=== PATIENT | male | born 1970 | race Two or more races ===

== ENCOUNTER 2022-09-07 00:57 | Inpatient (IN) | payer OTHER, MEDICAID ==
[~2022-09-07] VITALS: Ht 182.9 cm; Wt 84.1 kg
[2022-09-07 03:11] LABS: BASOPHILS % (AUTO) 0.3 % (0-1); EOSINOPHILS % (AUTO) 0.2 % (0-6); HEMATOCRIT 36.4 % (42.0-52.0); HEMOGLOBIN 11.5 g/dl (14.0-17.9); LYMPHOCYTES # (AUTO) 0.6 X10'3 (1.1-4.8); LYMPHOCYTES % (AUTO) 4.4 % (21-51); MEAN CORPUSCULAR HEMOGLOBIN 22.6 PG (27.0-31.0); MEAN CORPUSCULAR HGB CONC 31.7 g/dL (33.0-36.5); MEAN CORPUSCULAR VOLUME 71.2 FL (78-98); MONOCYTES # (AUTO) 0.9 X10'3 (0-0.9); MONOCYTES % (AUTO) 6.4 % (2-12); NEUTROPHILS % (AUTO) 88.7 % (42-75); PLATELET COUNT 480 X10'3 (140-440); RED BLOOD COUNT 5.11 X10'6 (4.70-6.10); RED CELL DISTRIBUTION WIDTH 19.6 % (11.5-14.5); WHITE BLOOD COUNT 13.6 X10'3 (4.5-11.0)
[2022-09-07 03:19] LABS: ALANINE AMINOTRANSFERASE 27 U/L (12-78); ALBUMIN 4.4 G/DL (3.4-5.0); ALBUMIN/GLOBULIN RATIO 1.3 (1.1-1.5); ALKALINE PHOSPHATASE 82 IU/L (46-116); ANION GAP 15 (8-16); ASPARTATE AMINO TRANSFERASE 20 U/L (10-37); BILIRUBIN,TOTAL 0.4 MG/DL (0.1-1.0); BLOOD UREA NITROGEN 17 MG/DL (7-18); BUN/CREATININE RATIO 15.6 (10.0-20.0); CALCIUM 8.4 MG/DL (8.5-10.1); CHLORIDE 104 MMOL/L (99-107); CREATINE KINASE 210 U/L (39-308); CREATININE 1.09 MG/DL (0.60-1.10); ETHANOL 0.098 GM/DL (0.0-0.010); GLUCOSE 77 MG/DL (70-104); SODIUM 141 MMOL/L (135-145); TOTAL CARBON DIOXIDE 21.7 MMOL/L (24-32); TOTAL PROTEIN 7.7 G/DL (6.4-8.2); eGFR 70 ML/MIN
[2022-09-07 04:33] LABS: PLATELET ESTIMATE INCREASED
[2022-09-07 04:34] LABS: ANISOCYTOSIS 2+; MICROCYTOSIS 1+
[2022-09-07 04:35] LABS: TARGET CELLS FEW
[2022-09-07 04:36] LABS: ELLIPTOCYTES FEW; POLYCHROMASIA FEW
[2022-09-07] MEDS ORDERED: normal saline 1000ML IV soln IVB ONE (04:55)
[2022-09-07] MEDS ORDERED: OLANZapine 2.5MG tablet PO ONE ×2 (05:15→11:15)
[2022-09-07] MEDS ORDERED: OLANZapine 2.5MG tablet PO SCH (05:15)
[2022-09-07] MEDS ORDERED: LIDOcaine 2% 10ml TOPICAL JELLY (Urojet) TP ONE (06:05)
[2022-09-07 08:01] LABS: CLARITY,URINE CLEAR (Clear); COLOR,URINE YELLOW (Yellow); GLUCOSE, URINE NEGATIVE (Neg); KETONES,URINE TRACE mg/dl (Neg); LEUKOCYTE ESTERASE ,URINE NEGATIVE (Neg); NITRITES, URINE NEGATIVE (Neg); OCCULT BLOOD,URINE NEGATIVE (Neg); PROTEIN,URINE NEGATIVE (Neg); URINE AMPHETAMINE SCREEN NEGATIVE (Neg); URINE BARBITUATE SCREEN NEGATIVE (Neg); URINE BENZODIAZEPINES SCREEN NEGATIVE (Neg); URINE CANNABINOID SCREEN POSITIVE (Neg); URINE COCAINE SCREEN NEGATIVE (Neg); URINE METHADONE SCREEN NEGATIVE (Neg); URINE OPIATE SCREEN NEGATIVE (Neg); URINE PHENCYCLIDINE SCREEN NEGATIVE (Neg); UROBILINOGEN,URINE 0.2 E.U/dL (0.2-1.0)
[2022-09-07 08:09] LABS: UA COLLECTION TYPE FOLEY CATH
[2022-09-07] MEDS ORDERED: iohexol 350MG/ML 100ml bottle IV ONE (09:07)
[2022-09-07] MEDS ORDERED: ondansetron/PF 4mg/2ml inj IV PRN (10:45)
[2022-09-07] MEDS ORDERED: PERFLUTREN PROTEIN-A MICROSPHR (Optison) 0.22 MG/ML 3ML VIAL IV ONE (10:45)
[2022-09-07] MEDS ORDERED: acetaminophen 325mg tablet PO PRN (10:45)
[2022-09-07] MEDS ORDERED: potassium Cl 40MEQ/1/2NS 520ml 520 ML IV PRN (10:45)
[2022-09-07] MEDS ORDERED: magnesium 4gm in 100ml NS 100 ML IV PRN (10:45)
[2022-09-07] MEDS ORDERED: magnesium 2GM in 50ml NS 50 ML IV PRN (10:45)
[2022-09-07] MEDS ORDERED: potassium Cl 20 mEq SR tablet PO PRN ×2 (10:45)
[2022-09-07] MEDS ORDERED: magnesium Cl slow-release 64mg tablet PO PRN (10:45)
[2022-09-07 11:00] LABS: MAGNESIUM 1.9 MG/DL (1.5-2.4)
[2022-09-07] MEDS: normal saline 1000ml 1,000 ML IV SCH ×2 (11:04→23:32)
--- NOTE | 2022-09-07 13:25 | NUR ---
CIRCULAR SAW FILER documentation: I have reviewed and agree with all interventions, assessments performed and documented by Gabriella Lundberg, no addisions to assessment added. Addendum: 09/08/22 at 0906 by Cassia Doe RN [id number] CIRCULAR SAW FILER documentation: I have reviewed and agree with all interventions, assessments performed and documented by Gabriella Lundberg, no addisions to assessment added. wrong patient time, patient wasn't on the floor at this time.
[2022-09-07] MEDS ORDERED: NORT25CA PO (13:29)
[2022-09-07] MEDS ORDERED: DULO60CA65 PO (13:29)
[2022-09-07] MEDS ORDERED: LINA290C PO (13:30)
[2022-09-07] MEDS ORDERED: IBUP200C5 PO (13:31)
[2022-09-07] MEDS ORDERED: ACET325T58 PO (13:33)
--- NOTE | 2022-09-07 16:26 | NUR ---
Zyprexa dose at 05:15 - unknown if was actually given by night nurse. Documented as non admin
--- NOTE | 2022-09-07 16:36 | NUR ---
Paged Dr. Milad Izquierdo RN RE: Flavio Cowan. Radiologist recommending MRI brain. Please review head/neck CTA report. Thanks
--- NOTE | 2022-09-07 16:45 | NUR ---
Report received from ER nurse. awaiting pt to ortho rm [id number]
--- NOTE | 2022-09-07 17:00 | NUR ---
Pt admitted into 4013B, oriented to room and call light system, appropriate at this time. NIH Stroke assessment done, tele box number [phone] functioning[address] VSS.
[2022-09-07 17:52] VITALS: BP 155/108
[2022-09-07 18:00] VITALS: BP 155/108
--- NOTE | 2022-09-07 18:06 | NUR ---
All documenting and assessments done by min shaw reviewed. I agree with all.
[2022-09-07] MEDS: K and/or MAG REPLACEMENT MC SCH (20:00)
[2022-09-07 22:00] VITALS: BP 148/106
[2022-09-08 01:47] VITALS: BP 153/107
[2022-09-08 06:00] VITALS: BP 145/98
[2022-09-08 06:47] LABS: BASOPHILS % (AUTO) 0.6 % (0-1); EOSINOPHILS # (AUTO) 0.1 X10'3 (0-0.9); EOSINOPHILS % (AUTO) 1.4 % (0-6); HEMOGLOBIN 10.5 g/dl (14.0-17.9); LYMPHOCYTES # (AUTO) 1.1 X10'3 (1.1-4.8); MEAN CORPUSCULAR HEMOGLOBIN 22.7 PG (27.0-31.0); MEAN CORPUSCULAR HGB CONC 31.8 g/dL (33.0-36.5); MEAN CORPUSCULAR VOLUME 71.6 FL (78-98); MEAN PLATELET VOLUME 7.3 FL (7.4-10.4); MONOCYTES # (AUTO) 0.9 X10'3 (0-0.9); MONOCYTES % (AUTO) 11.6 % (2-12); NEUTROPHILS # (AUTO) 5.7 X10'3 (1.8-7.7); NEUTROPHILS % (AUTO) 72.4 % (42-75); PLATELET COUNT 406 X10'3 (140-440); RED BLOOD COUNT 4.61 X10'6 (4.70-6.10); RED CELL DISTRIBUTION WIDTH 19.5 % (11.5-14.5); WHITE BLOOD COUNT 7.8 X10'3 (4.5-11.0)
[2022-09-08 07:08] LABS: ALBUMIN 3.7 G/DL (3.4-5.0); ANION GAP 9 (8-16); BLOOD UREA NITROGEN 13 MG/DL (7-18); BUN/CREATININE RATIO 14.9 (10.0-20.0); CALCIUM 8.5 MG/DL (8.5-10.1); CHLORIDE 107 MMOL/L (99-107); CREATININE 0.87 MG/DL (0.60-1.10); GLUCOSE 103 MG/DL (70-104); MAGNESIUM 1.9 MG/DL (1.5-2.4); POTASSIUM 3.6 MMOL/L (3.5-5.1); SODIUM 140 MMOL/L (135-145); TOTAL CARBON DIOXIDE 24.2 MMOL/L (24-32); eGFR > 90 ML/MIN
--- NOTE | 2022-09-08 07:13 | NUR ---
Problems reprioritized. Patient report given, questions answered & plan of care reviewed with niko Dunham and niko Black.
[2022-09-08] MEDS: K and/or MAG REPLACEMENT MC SCH (07:54)
[2022-09-08 09:40] LABS: % IRON SATURATION 18 % (11-46); IRON 69 UG/DL (53-167); TOTAL IRON BINDING CAPACITY 384 UG/DL (259-388)
[2022-09-08] MEDS: normal saline 1000ml 1,000 ML IV SCH ×2 (09:50→16:45)
[2022-09-08 10:00] VITALS: BP 147/105
[2022-09-08] MEDS ORDERED: ibuprofen 200mg tablet PO PRN (10:30)
[2022-09-08] MEDS ORDERED: acetaminophen 325mg tablet PO PRN (10:30)
--- NOTE | 2022-09-08 17:00 | NUR ---
Orientee documentation: I have reviewed and agree with all interventions, assessments performed and documented by Sofia CEE.
--- NOTE | 2022-09-08 17:00 | NUR ---
Orientee Medication Administration: For this medication-pass time frame, all medication were reviewed, dispensed, administered and documented per hospital policy by Sofia CEE.
[2022-09-08 18:00] VITALS: BP 167/103
--- NOTE | 2022-09-08 18:45 | NUR ---
Patient was yelling because he was still waiting for the discharge orders from the physician, stated it has been 6 hours. Day shift RN called DR. Stinson, received orders and would be putting in the discharge orders. 1844 D/C grace cath without any complications noted, patient did not report any pain. 1929 two PIVs D/Cd, one 22g to the R hand and one 20 g to R forearm, iv catheters intact, patient reports no pain or discomfort to either site. Both sites show no s/s of infection. Patient signed and received discharge paperwork. Student nurse helped patient contact a cab ride to a nearby hotel. 2009 Patient was able to walk to elevator, then walk into lobby to wait for cab with steady gait and no distress noted.
--- NOTE | 2022-09-08 18:57 | NUR ---
Problems reprioritized. Patient report given, questions answered & plan of care reviewed with Page CEE.
[2022-09-08] MEDS ORDERED: ATOR20TA PO (19:16)
[2022-09-08] MEDS ORDERED: ASPI-1265 PO (19:49)
--- NOTE | 2022-09-08 19:55 | NUR ---
have been working on patient's discharge since 1919. unable to verify aspirin and plavix due to a conflict. pharmacy unable to assist. nursing pipe and boiler covers supervisor unable to assist. no other supercharger mechanic knows how to get past the conflict for the patient to have both aspirin and plavix. will transmit in am - August, RN documented pt to product picker medications in am from [facility] on [address]: plavix, aspirin and lipitor. patient instructions given for urinary retention and pt has stroke packet as well. message left for dr. Stinson as well. no return call.
--- NOTE | 2022-09-08 20:30 | NUR ---
Student documentation: I have reviewed and agree with all interventions, assessments performed and documented by Nlya.
[2022-09-08] MEDS ORDERED: nortriptyline 25mg capsule PO SCH (21:00)
[2022-09-08] MEDS ORDERED: duloxetine 30mg CAPSULE.DR PO SCH (21:00)
[2022-09-09] MEDS ORDERED: TYPE IN GENERIC & BRAND NAME OF PATIENT MED STRENGTH & FORM PO SCH (08:00)
--- NOTE | 2022-09-09 08:09 | NUR ---
Called in prescriptions for Aspirin, lipitor and plavix to [facility] on [address] [facility]. Called patient and left VM notifying him of the prescriptions.
== END 2022-09-08 20:20 | disposition home or self-care (01) | DRG 69 ==
LOC: ER 00:59 → INTOOBSV 10:48 → OBSVTOIN 10:48 → ED HOLD 10:48 → ORTHO 4S 16:54
PROVIDERS: ADMIT Internal Medicine; ATTEND Internal Medicine
PROC: B3251ZZ Computerized Tomography (CT Scan) of Bilateral Common Carotid Arteries using Low Osmolar Contrast (ICD-10-PCS; principal; 2022-09-07)
PROC: B32G1ZZ Computerized Tomography (CT Scan) of Bilateral Vertebral Arteries using Low Osmolar Contrast (ICD-10-PCS; 2022-09-07)
PROC: B32R1ZZ Computerized Tomography (CT Scan) of Intracranial Arteries using Low Osmolar Contrast (ICD-10-PCS; 2022-09-07)
PROC: B3281ZZ Computerized Tomography (CT Scan) of Bilateral Internal Carotid Arteries using Low Osmolar Contrast (ICD-10-PCS; 2022-09-07)
DX: G45.9 Transient cerebral ischemic attack, unspecified (principal); I10 Essential (primary) hypertension; F32.A Depression, unspecified; F10.129 Alcohol abuse with intoxication, unspecified; K58.9 Irritable bowel syndrome, unspecified; F17.200 Nicotine dependence, unspecified, uncomplicated
CPT/HCPCS: 36415; 70450; 70496; 70498; 70551; 80048; 80053; 80305; 80320; 81003; 82140; 82550; 82948; 83540; 83550; 83735; 84132; 85008; 85025; 87081; 93005; 93306; 97161; 97530; 99285; G0378; J3490; J7030; Q9967

== ENCOUNTER 2025-02-04 11:41 | Emergency (ER) | payer BC, MEDICAID, OTHER ==
[~2025-02-04] VITALS: Ht 182.9 cm; Wt 86.4 kg
[~2025-02-04 11:41] MED LIST: ATOR20TA PO; DULO60CA65 PO; LINA290C PO; NORT25CA PO
[2025-02-04 12:01] VITALS: TEMP 97
--- NOTE | 2025-02-04 15:47 | Physician Documentation ---
History of Present Illness ~ Chief Complaint: Flu Symptoms Stated Complaint: MULTIPLE MED COMPLAINTS Time Seen by MD: 13:15 HPI Patient is seen today with complaints of epigastric/left upper quadrant abdominal pain with nausea and vomiting. Patient states he had acute onset while at work today. Patient denies any change when eating of the epigastric pain. Patient does admit to history of GERD and states he takes Prilosec daily. Patient states he does not want to miss work tomorrow. He did have to leave early today from work. Patient denies any melena or hematemesis. He has no other concern or complaint at this time. Medication Reconciliation Allergies: Coded Allergies: No Known Allergies (Unverified , 09/07/22) Scheduled Atorvastatin Calcium (Lipitor), 1 TAB PO DAILY Duloxetine HCl (Duloxetine HCl), 1 CAP PO HS, (Reported) Linaclotide (Linzess), 1 CAP PO DAILY, (Reported) Nortriptyline HCl (Nortriptyline HCl), 4 TAB PO HS, (Reported) Past Medical History Past Medical History: *GI/HEPATOBILIARY* Review of Systems Constitutional: Denies: chills, fever, weakness Eyes: Denies: pain, blurred vision ENT: Denies: ear pain, nose pain, throat pain, mouth pain Respiratory: Denies: cough, shortness of breath Cardiovascular: Denies: chest pain, palpitations Gastrointestinal: Denies: abdominal pain, nausea, vomiting Genitourinary: Denies: burning, dysuria Male Genitalia: Denies: penile discharge, testicular pain Neurological: Denies: headache, dizziness Musculoskeletal: Denies: pain, swelling Integumentary: Denies: rash, lesions Allergic/Immunologic: Denies: hives, itching Hematologic/Lymphatic: Denies: no symptoms reported Psychiatric: Denies: depression, anxiety Physical Exam Vital Signs: Temperature: 97.0, Source: Temporal, Heart Rate: 98, Respiratory Rate: 18, BP: 136/103, Pulse Oximetry: 97, Weight: 86.360 Physical Exam General: Awake and Alert, no acute distress. HEENT: Conjunctiva pink, Sclera clear, Mucus Membranes moist. Neck: Supple without masses and tenderness. Resp: Unlabored. Lungs clear to auscultation bilaterally. Heart: Regular Rate and rhythm, normal S1 and S2 without murmur, rub or gallop. Abdomen: Soft and non tender no organomegaly Extremities: No cyanosis,clubbing or edema. Skin: Warm and Dry. Progress Results/Orders Results/Orders Orders - KING ANTHONY R PAC Covid19 Binax Poc Result Entry (02/04/25 14:23) Urinalysis, Cult If Indicated (02/04/25 15:40) Chest,Single View (02/04/25 15:40) Hs Troponin I W Calculations (02/04/25 17:40) Completed Orders - KING ANTHONY R PAC Cbc/Diff (02/04/25 15:40) Lipase (02/04/25 15:40) Electrocardiogram (02/04/25 15:40) Chest,Single View (02/04/25 15:40) BMP (02/04/25 15:40) Hs Troponin I W Calculations (02/04/25 15:40) Lidocaine 2% Viscous (Xylocaine 2% Visco (02/04/25 15:40) Mag & Alum Hydrox/Simeth Susp (Maalox Or (02/04/25 15:40) Pantoprazole Tablet (Protonix) (02/04/25 15:40) Medications Received in ER Medications (Trade) Dose Ordered Sig/Bridgette Route PRN Reason Start Time Stop Time Status Last Admin Dose Admin (Xylocaine 2% Viscous 15mL cup) 15 ml ONCE STAT MM 02/04/25 15:40 02/04/25 15:48 DC 02/04/25 16:04 15 ML (Maalox oral suspension) 30 ml ONCE STAT PO 02/04/25 15:40 02/04/25 15:48 DC 02/04/25 16:04 30 ML (Protonix) 40 mg ONCE STAT PO 02/04/25 15:40 02/04/25 15:48 DC 02/04/25 16:04 40 MG Vital Signs 02/04/25 02/04/25 12:01 16:04 Temp 97.0 Pulse 98 97 Resp 18 16 B/P (MAP) 136/103 156/98 (117) Pulse Ox 97 98 O2 Flow Rate 0 Laboratory Tests Test 02/04/25 14:20 02/04/25 15:55 SARS-CoV-2 Antigen (Rapid) Negative White Blood Count 6.7 Red Blood Count 5.04 Hemoglobin 16.1 Hematocrit 47.5 Mean Corpuscular Volume 94.1 Mean Corpuscular Hemoglobin 32.0 H Mean Corpuscular Hemoglobin Concent 34.0 Red Cell Distribution Width 12.6 Platelet Count 300 Mean Platelet Volume 8.8 Neutrophils (%) (Auto) 76.1 H Lymphocytes (%) (Auto) 15.8 L Monocytes (%) (Auto) 7.0 Eosinophils (%) (Auto) 0.4 Basophils (%) (Auto) 0.7 Neutrophils # (Auto) 5.1 Lymphocytes # (Auto) 1.1 Monocytes # (Auto) 0.5 Eosinophils # (Auto) 0.0 Basophils # (Auto) 0.0 CBC Comment Sodium Level 142 Potassium Level 4.3 Chloride Level 108 H Carbon Dioxide Level 26.9 Anion Gap 7 L Blood Urea Nitrogen 17 Creatinine 1.19 H Estimated GFR/1.73 m2 63 BUN/Creatinine Ratio 14.3 Glucose Level 100 Calcium Level 9.3 Troponin I High Sensitivity 5 Albumin 4.2 Lipase 67 Chemistry Comments EKG/XRAY/CT/US/VASC/MRI Chest X-Ray : Additional Comments Chest x-ray interpreted by myself today shows no large infiltrate, no large effusion, normal mediastinum. DIAGNOSTIC RADIOLOGY Patient: HAIM FORREST Medical Record: [id number] OF [facility] : 1970, Age: 54 Sex: Male Location: ER Patient Status: REG ER Service Date/Time: 02/04/25/ 1540 Ordering Physician: KING ANTHONY PAC Exam: CHEST,SINGLE VIEW AP portable chest CLINICAL INDICATION: epigastric abd pain/chest pain FINDINGS: Left ventricular configuration of the heart. The aorta is tortuous. No infiltrates or effusions IMPRESSION: 1. No acute cardiopulmonary pathology Electronically Signed by:JOAQUIN CALVILLO MD Date & Time: 02/04/25 1615 Dictated by: JOAQUIN CALVILLO MD Dictation date and time: 02/04/25 1601 Primary Care Provider: NO PRIMARY CARE PROVIDER cc: KING ANTHONY ~ Medical Decision Making Findings Patient is seen today with complaints of epigastric/left upper quadrant abdominal pain with nausea and vomiting. Patient states he had acute onset while at work today. Patient denies any change when eating of the epigastric pain. Patient does admit to history of GERD and states he takes Prilosec daily. Patient states he does not want to miss work tomorrow. He did have to leave early today from work. Patient denies any melena or hematemesis. He has no other concern or complaint at this time. Patient did have labs and chest x-ray that returned unremarkable. Patient was given GI cocktail with Maalox and viscous lidocaine and Protonix by mouth and patient did admit to significant relief of symptoms. Patient will be given prescription for sucralfate to be taken as directed and he will follow up with primary care as soon as possible get referral for upper endoscopy as soon as possible. Patient will monitor for melena or black tarry stool and will return to the ED with any worsening, concerning or changing symptoms. Departure Disposition: HOME / SELF CARE / HOMELESS Impression: Primary Impression: Gastritis Qualified Codes: K29.00 - Acute gastritis without bleeding Condition: Improved Discharge Instructions: Gastritis, Adult, [id number] Additional Instructions: Patient did have labs and chest x-ray that returned unremarkable. Patient was given GI cocktail with Maalox and viscous lidocaine and Protonix by mouth and patient did admit to significant relief of symptoms. Patient will be given prescription for sucralfate to be taken as directed and he will follow up with primary care as soon as possible get referral for upper endoscopy as soon as pos sible. Patient will monitor for melena or black tarry stool and will return to the ED with any worsening, concerning or changing symptoms. Referrals: NO PRIMARY CARE PROVIDER (PCP) Prescriptions Sucralfate (Sucralfate) 1 Gram Tablet 1 TAB PO Q6H for 15 Days, #60 TAB 0 Refills Prov: KING ANTHONY 02/04/25 Signature Scribe Signature: No scribe Attestation: No scribe KING ANTHONY Feb 04, 2025 15:47
--- NOTE | 2025-02-04 15:58 | ELECTROCARDIOGRAPH REPORT ---
[facility] Test Date: 2025-02-04 Test Time: 15:53:44 Pat Name: HAIM FORREST Department: [facility]- Patient ID: [id number] Room: Gender: M Cage Unloader: : 1970 Requested By: KING ANTHONY Order Number: [id number] Reading MD: Measurements Intervals [place] Rate: 58 P: 0 OR: 168 QRS: 59 QRSD: 88 T: 61 QT: 423 QTc: 416 Interpretive Statements Sinus bradycardia Baseline wander in lead(s) V3 Please click the below link to view image of tracing.
[2025-02-04 16:04] VITALS: BP 156/98; PULSE 97; RESP 16; O2SAT 98
[2025-02-04] MEDS: pantoprazole 40mg Tablet.DR PO STA (16:04)
[2025-02-04] MEDS: mag hydrox/Alum hydrox/simeth 30ml oral suspension PO STA (16:04)
[2025-02-04] MEDS: LIDOcaine 2% Viscous 15ml cup MM STA (16:04)
[2025-02-04 16:15] LABS: MEAN PLATELET VOLUME 8.8 FL (7.4-10.4); RED CELL DISTRIBUTION WIDTH 12.6 % (11.5-14.5)
--- NOTE | 2025-02-04 16:17 | RADIOLOGY REPORT ---
AP portable chest CLINICAL INDICATION: epigastric abd pain/chest pain FINDINGS: Left ventricular configuration of the heart. The aorta is tortuous. No infiltrates or effusions IMPRESSION: 1. No acute cardiopulmonary pathology
[2025-02-04 16:38] LABS: CREATININE 1.19 MG/DL (0.60-1.10); TOTAL CARBON DIOXIDE 26.9 MMOL/L (24-32); eCRCL 76 ML/MIN; eGFR 63 ML/MIN
[2025-02-04] MEDS ORDERED: SUCR1TAB PO (17:52)
== END 2025-02-04 18:09 | disposition home or self-care (01) ==
LOC: ER 11:43
DX: K29.00 Acute gastritis without bleeding (principal); K21.9 Gastro-esophageal reflux disease without esophagitis; Z20.822 Contact with and (suspected) exposure to COVID-19; Z79.899 Other long term (current) drug therapy
CPT/HCPCS: 36415; 71045; 80048; 83690; 84484; 85025; 87811; 93005; 99285; J7030